=== PATIENT | male | born 1965 | race Hispanic/Latino ===

== ENCOUNTER 2017-10-25 19:32 | Emergency (ER) | payer OTHER ==
[2017-10-25 19:52] VITALS: RESP 14; O2SAT 99
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
[2017-10-25 21:17] VITALS: BP 120/78; PULSE 80; TEMP 98
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
== END 2017-10-25 21:17 | disposition home or self-care (01) ==
LOC: C.ER 19:32
DX: S43.401A Unspecified sprain of right shoulder joint, initial encounter (principal); S43.101A Unspecified dislocation of right acromioclavicular joint, initial encounter; S70.12XA Contusion of left thigh, initial encounter; S00.81XA Abrasion of other part of head, initial encounter; S50.812A Abrasion of left forearm, initial encounter; V23.4XXA Motorcycle driver injured in collision with car, pick-up truck or van in traffic accident, initial encounter; Y92.410 Unspecified street and highway as the place of occurrence of the external cause